=== PATIENT | male | born 1940 | race Caucasian/White ===

== ENCOUNTER 2017-04-26 05:13 | Inpatient (IN) | payer MEDICARE, OTHER ==
[2017-04-26 05:34] LABS: BEDSIDE GLUCOSE 187 MG/DL (83-110)
[2017-04-26 05:55] LABS: BASO # 0.1 10^3/uL (0.0-0.2); BASO % 0.7 % (0.0-1.0); EOS # 0.6 10^3/uL (0.0-0.50); EOS % 5.5 % (0.0-3.0); HEMATOCRIT 42.8 % (42.0-52.0); HEMOGLOBIN 14.5 g/dl (14.0-18.0); IMMATURE GRANULOCYTE % 0.7 % (0-3.0); LYMPH # 1.3 10^3/uL (1.5-4.5); MEAN CORPUSCULAR HGB CONC 33.9 g/dl (32.0-36.5); MEAN CORPUSCULAR VOLUME 97.5 fl (80.0-96.0); MONO # 1.1 10^3/uL (0.0-0.8); MONO % 10.8 % (0.0-5.0); NEUTROPHILS # 6.9 10^3/uL (1.8-7.7); NEUTROPHILS % 69.3 % (36.0-66.0); PLATELET COUNT, AUTOMATED 200 10^3/uL (150-450); RED BLOOD COUNT 4.39 10^6/uL (4.30-6.10); RED CELL DISTRIBUTION WIDTH 12.9 % (11.5-14.5)
[2017-04-26 05:59] LABS: INR 1.35; PARTIAL THROMBOPLASTIN TIME 36.1 SECONDS (26.8-37.9)
[2017-04-26] MEDS ORDERED: ASPIRIN 325 MG TAB PO (06:00)
[2017-04-26 06:09] LABS: ANION GAP 6 MEQ/L (8-16); BLOOD UREA NITROGEN 18 MG/DL (7-18); CALCIUM LEVEL 8.7 MG/DL (8.8-10.2); CARBON DIOXIDE LEVEL 26 MEQ/L (21-32); CHLORIDE LEVEL 107 MEQ/L (98-107); CPK CREATINE PHOSPHOKINASE 49 U/L (39-308); CREATININE FOR GFR 0.89 MG/DL (0.70-1.30); GLOMERULAR FILTRATION RATE > 60.0 (>42); GLUCOSE, FASTING 195 MG/DL (70-100); POTASSIUM SERUM 4.1 MEQ/L (3.5-5.1); SODIUM LEVEL 139 MEQ/L (136-145); TROPONIN I < 0.02 NG/ML (< 0.10)
[2017-04-26 06:11] LABS: CK-MB VALUE MASS 1.4 NG/ML (0.0-3.6); MB/CK RELATIVE INDEX 2.85 (< OR =4); PHENYTOIN (DILANTIN) 9.7 UG/ML (10.0-20.0)
[2017-04-26] MEDS: GI COCKTAIL 50ML BTL(HYOSCYAMINE/MAALOX/LIDOCAINE VISCOUS)(1:3:1) PO (06:13)
[2017-04-26] MEDS: METOCLOPRAMIDE INJ 10MG/2ML VIAL (J2765) IV (06:42)
[2017-04-26] MEDS ORDERED: ISOVUE-370 76% 100ML VIAL (Q9967) As Ordered (06:52)
[2017-04-26] MEDS ORDERED: KETOROLAC 30 MG/ML VIAL (J1885) As Ordered (07:24)
[2017-04-26] MEDS: KETOROLAC 30 MG/ML VIAL (J1885) IV (07:32)
[2017-04-26 07:41] LABS: APPEARANCE, URINE CLEAR (CLEAR); BACTERIA, URINE AUTO NEGATIVE (NEGATIVE); BILIRUBIN, URINE AUTO NEGATIVE (NEGATIVE); BLOOD, URINE BLOOD NEGATIVE (NEGATIVE); COLOR, URINE YELLOW (YELLOW); GLUCOSE, URINE (UA) AUTO 1+ mg/dL (NEGATIVE); KETONE, URINE AUTO NEGATIVE (NEGATIVE); LEUKOCYTE ESTERASE, URINE AUTO NEGATIVE (NEGATIVE); NITRITE, URINE AUTO NEGATIVE (NEGATIVE); PROTEIN, URINE AUTO NEGATIVE (NEGATIVE); RBC, URINE AUTO 3 /HPF (0-3); SPECIFIC GRAVITY URINE AUTO 1.024 (1.002-1.035); SQUAMOUS EPITHELIAL CELL UR AU 0 /HPF (0-6); WBC, URINE AUTO 1 /HPF (0-3)
[2017-04-26 08:41] LABS: CK-MB VALUE MASS 1.3 NG/ML (0.0-3.6); CPK CREATINE PHOSPHOKINASE 52 U/L (39-308); TROPONIN I < 0.02 NG/ML (< 0.10)
[2017-04-26] MEDS ORDERED: GLUCAGON FOR INJ 1 MG VIAL (J1610) SC (11:00)
[2017-04-26] MEDS ORDERED: GLUCOSE 4 GM CHEW TABLET PO (11:00)
[2017-04-26] MEDS: ENOXAPARIN 100MG/1ML SYRINGE (J1650) SC ×2 (11:43→23:37)
[2017-04-26] MEDS: NS 1,000 ML IV (11:43)
[2017-04-26 11:52] LABS: ALBUMIN 3.8 GM/DL (3.2-5.2); ALBUMIN/GLOBULIN RATIO 0.88 (1.00-1.93); ALKALINE PHOSPHATASE 82 U/L (45-117); ALT/SGPT 26 U/L (12-78); ANION GAP 10 MEQ/L (8-16); AST/SGOT 25 U/L (7-37); BILIRUBIN,TOTAL 0.3 MG/DL (0.2-1.0); BLOOD UREA NITROGEN 16 MG/DL (7-18); CALCIUM LEVEL 8.6 MG/DL (8.8-10.2); CARBON DIOXIDE LEVEL 25 MEQ/L (21-32); CHLORIDE LEVEL 105 MEQ/L (98-107); CREATININE FOR GFR 0.89 MG/DL (0.70-1.30); GLOMERULAR FILTRATION RATE > 60.0 (>42); GLUCOSE, FASTING 163 MG/DL (70-100); SODIUM LEVEL 140 MEQ/L (136-145); TOTAL PROTEIN 8.1 GM/DL (6.4-8.2)
[2017-04-26 12:11] LABS: BEDSIDE GLUCOSE 142 MG/DL (83-110)
[2017-04-26] MEDS: DOXYCYCLINE HYCLATE 100 MG in D5W MINI-BAG PLUS 100 ML IV ×2 (12:30→23:37)
[2017-04-26] MEDS: HumaLOG INSULIN (NovoLOG) PER UNIT SC ×3 (12:34→20:29)
[2017-04-26] MEDS: CEFTRIAXONE SOD 1 GM in APPROPRIATE DILUENT 1 EA IV (13:28)
[2017-04-26] MEDS: PHENYTOIN ER 100 MG CAP PO ×3 (14:03→20:29)
[2017-04-26 14:30] LABS: CK-MB VALUE MASS 1.6 NG/ML (0.0-3.6); CPK CREATINE PHOSPHOKINASE 62 U/L (39-308); MB/CK RELATIVE INDEX 2.58 (< OR =4); TROPONIN I < 0.02 NG/ML (< 0.10)
[2017-04-26] MEDS: ONDANSETRON 4MG/2ML VIAL (J2405) IV (17:00)
[2017-04-26] MEDS: PERCOCET 5MG/325MG TAB PO ×2 (17:01→18:45)
[2017-04-26] MEDS: ACETAMINOPHEN TAB 650MG DOSE (2X325MG) PO (17:02)
[2017-04-26 17:13] LABS: BEDSIDE GLUCOSE 145 MG/DL (83-110)
[2017-04-26 20:21] LABS: BEDSIDE GLUCOSE 195 MG/DL (83-110)
[2017-04-26 20:26] LABS: CK-MB VALUE MASS 1.3 NG/ML (0.0-3.6); CPK CREATINE PHOSPHOKINASE 61 U/L (39-308); MB/CK RELATIVE INDEX 2.13 (< OR =4); TROPONIN I < 0.02 NG/ML (< 0.10)
[2017-04-27 02:52] LABS: ALBUMIN 3.1 GM/DL (3.2-5.2); ALBUMIN/GLOBULIN RATIO 0.67 (1.00-1.93); ALKALINE PHOSPHATASE 65 U/L (45-117); ALT/SGPT 23 U/L (12-78); ANION GAP 11 MEQ/L (8-16); AST/SGOT 20 U/L (7-37); BILIRUBIN,TOTAL 0.5 MG/DL (0.2-1.0); BLOOD UREA NITROGEN 25 MG/DL (7-18); CALCIUM LEVEL 8.5 MG/DL (8.8-10.2); CARBON DIOXIDE LEVEL 23 MEQ/L (21-32); CHLORIDE LEVEL 107 MEQ/L (98-107); CPK CREATINE PHOSPHOKINASE 68 U/L (39-308); CREATININE FOR GFR 1.05 MG/DL (0.70-1.30); GLOMERULAR FILTRATION RATE > 60.0 (>42); GLUCOSE, FASTING 170 MG/DL (70-100); SODIUM LEVEL 141 MEQ/L (136-145); TOTAL PROTEIN 7.7 GM/DL (6.4-8.2); TROPONIN I 0.03 NG/ML (< 0.10)
[2017-04-27 02:53] LABS: CK-MB VALUE MASS 1.3 NG/ML (0.0-3.6); MB/CK RELATIVE INDEX 1.91 (< OR =4)
[2017-04-27 03:18] LABS: BASO % 0.1 % (0.0-1.0); HEMATOCRIT 44.1 % (42.0-52.0); HEMOGLOBIN 14.9 g/dl (14.0-18.0); IMMATURE GRANULOCYTE % 0.3 % (0-3.0); LYMPH # 0.7 10^3/uL (1.5-4.5); LYMPH % 3.4 % (24.0-44.0); MEAN CORPUSCULAR HEMOGLOBIN 32.9 pg (27.0-33.0); MEAN CORPUSCULAR HGB CONC 33.8 g/dl (32.0-36.5); MEAN CORPUSCULAR VOLUME 97.4 fl (80.0-96.0); MONO # 1.5 10^3/uL (0.0-0.8); MONO % 7.5 % (0.0-5.0); NEUTROPHILS # 17.8 10^3/uL (1.8-7.7); NEUTROPHILS % 88.7 % (36.0-66.0); PLATELET COUNT, AUTOMATED 194 10^3/uL (150-450); RED BLOOD COUNT 4.53 10^6/uL (4.30-6.10); RED CELL DISTRIBUTION WIDTH 13.2 % (11.5-14.5); WHITE BLOOD COUNT 20.1 10^3/uL (4.0-10.0)
[2017-04-27 03:22] LABS: INR 1.83; PROTHROMBIN TIME 21.7 SECONDS (12.4-14.5)
[2017-04-27 07:51] LABS: BEDSIDE GLUCOSE 161 MG/DL (83-110)
[2017-04-27] MEDS: ONDANSETRON 4MG/2ML VIAL (J2405) IV (08:14)
[2017-04-27] MEDS: ACETAMINOPHEN TAB 650MG DOSE (2X325MG) PO ×2 (08:15→18:44)
[2017-04-27] MEDS: PHENYTOIN ER 100 MG CAP PO ×4 (08:15→20:57)
[2017-04-27] MEDS: HumaLOG INSULIN (NovoLOG) PER UNIT SC ×5 (08:16→20:57)
[2017-04-27] MEDS ORDERED: ALBUTEROL SULFATE 2.5 MG/0.5 ML INH NEB SOLN NEB (10:00)
[2017-04-27] MEDS: ENOXAPARIN 100MG/1ML SYRINGE (J1650) SC ×2 (11:10→23:28)
[2017-04-27] MEDS: CEFTRIAXONE SOD 2 GM in APPROPRIATE DILUENT 1 EA IV (11:11)
[2017-04-27] MEDS: DOXYCYCLINE HYCLATE 100 MG in D5W MINI-BAG PLUS 100 ML IV ×2 (11:11→23:28)
[2017-04-27] MEDS: KCL 40MEQ in NS 1000ML 1,000 ML IV ×2 (11:11→20:57)
[2017-04-27 12:22] LABS: BEDSIDE GLUCOSE 157 MG/DL (83-110)
[2017-04-27 17:28] LABS: BEDSIDE GLUCOSE 120 MG/DL (83-110)
[2017-04-27 20:58] LABS: BEDSIDE GLUCOSE 162 MG/DL (83-110)
[2017-04-28 05:24] LABS: HEMATOCRIT 39.9 % (42.0-52.0); HEMOGLOBIN 13.5 g/dl (14.0-18.0); MEAN CORPUSCULAR HEMOGLOBIN 32.9 pg (27.0-33.0); MEAN CORPUSCULAR HGB CONC 33.8 g/dl (32.0-36.5); MEAN CORPUSCULAR VOLUME 97.3 fl (80.0-96.0); PLATELET COUNT, AUTOMATED 171 10^3/uL (150-450); RED CELL DISTRIBUTION WIDTH 13.2 % (11.5-14.5); WHITE BLOOD COUNT 18.2 10^3/uL (4.0-10.0)
[2017-04-28 05:28] LABS: ADD MANUAL DIFFER YES; DIFF SLIDE NUMBER 63; POSITIVE MORPH POS FLAG
[2017-04-28 05:31] LABS: INR 2.18; PROTHROMBIN TIME 25.1 SECONDS (12.4-14.5)
[2017-04-28 05:38] LABS: ALBUMIN 2.5 GM/DL (3.2-5.2); ALBUMIN/GLOBULIN RATIO 0.57 (1.00-1.93); ALKALINE PHOSPHATASE 52 U/L (45-117); ALT/SGPT 17 U/L (12-78); ANION GAP 8 MEQ/L (8-16); AST/SGOT 28 U/L (7-37); BILIRUBIN,TOTAL 0.8 MG/DL (0.2-1.0); BLOOD UREA NITROGEN 28 MG/DL (7-18); CALCIUM LEVEL 8.2 MG/DL (8.8-10.2); CARBON DIOXIDE LEVEL 23 MEQ/L (21-32); CHLORIDE LEVEL 111 MEQ/L (98-107); CREATININE FOR GFR 1.01 MG/DL (0.70-1.30); GLOMERULAR FILTRATION RATE > 60.0 (>42); GLUCOSE, FASTING 137 MG/DL (70-100); PHENYTOIN (DILANTIN) 9.2 UG/ML (10.0-20.0); POTASSIUM SERUM 4.2 MEQ/L (3.5-5.1); SODIUM LEVEL 142 MEQ/L (136-145); TOTAL PROTEIN 6.9 GM/DL (6.4-8.2)
[2017-04-28] MEDS: KCL 40MEQ in NS 1000ML 1,000 ML IV ×3 (05:51→20:04)
[2017-04-28 06:07] LABS: BANDS 4 % (< 11); LYMPHOCYTES 2 % (16-52); MONOCYTES 2 % (0-8); NEUTROPHILS 92 % (35-75)
[2017-04-28 06:08] LABS: PLATELET ESTIMATE NORMAL (NORMAL)
[2017-04-28] MEDS: HumaLOG INSULIN (NovoLOG) PER UNIT SC ×4 (07:30→20:07)
[2017-04-28] MEDS: PHENYTOIN ER 100 MG CAP PO ×4 (08:30→20:11)
[2017-04-28] MEDS: GASTROGRAFIN SOLUTION 30ML PO ×2 (08:30→09:05)
[2017-04-28] MEDS: ENOXAPARIN 100MG/1ML SYRINGE (J1650) SC (08:35)
[2017-04-28] MEDS ORDERED: ISOVUE-370 76% 100ML VIAL (Q9967) As Ordered (09:41)
[2017-04-28] MEDS: CEFTRIAXONE SOD 2 GM in APPROPRIATE DILUENT 1 EA IV (10:50)
[2017-04-28] MEDS: DOXYCYCLINE HYCLATE 100 MG in D5W MINI-BAG PLUS 100 ML IV ×2 (11:32→23:17)
[2017-04-28 16:38] LABS: BEDSIDE GLUCOSE 125 MG/DL (83-110)
[2017-04-28 20:14] LABS: BEDSIDE GLUCOSE 191 MG/DL (83-110)
[2017-04-29 01:19] LABS: BEDSIDE GLUCOSE 144 MG/DL (83-110)
[2017-04-29] MEDS: KCL 40MEQ in NS 1000ML 1,000 ML IV (02:55)
[2017-04-29 04:24] LABS: HEMATOCRIT 44.7 % (42.0-52.0); HEMOGLOBIN 15.1 g/dl (14.0-18.0); MEAN CORPUSCULAR HGB CONC 33.8 g/dl (32.0-36.5); MEAN CORPUSCULAR VOLUME 97.6 fl (80.0-96.0); PLATELET COUNT, AUTOMATED 175 10^3/uL (150-450); RED BLOOD COUNT 4.58 10^6/uL (4.30-6.10); RED CELL DISTRIBUTION WIDTH 13.2 % (11.5-14.5); WHITE BLOOD COUNT 15.4 10^3/uL (4.0-10.0)
[2017-04-29 04:26] LABS: ADD MANUAL DIFFER YES; DIFF SLIDE NUMBER 42; POSITIVE MORPH POS FLAG
[2017-04-29 04:47] LABS: ALBUMIN 2.6 GM/DL (3.2-5.2); ALBUMIN/GLOBULIN RATIO 0.51 (1.00-1.93); ALKALINE PHOSPHATASE 70 U/L (45-117); ALT/SGPT 552 U/L (12-78); ANION GAP 11 MEQ/L (8-16); AST/SGOT 1392 U/L (7-37); BILIRUBIN,TOTAL 0.9 MG/DL (0.2-1.0); BLOOD UREA NITROGEN 19 MG/DL (7-18); CALCIUM LEVEL 9.1 MG/DL (8.8-10.2); CARBON DIOXIDE LEVEL 22 MEQ/L (21-32); CHLORIDE LEVEL 111 MEQ/L (98-107); GLOMERULAR FILTRATION RATE > 60.0 (>42); GLUCOSE, FASTING 143 MG/DL (70-100); POTASSIUM SERUM 4.6 MEQ/L (3.5-5.1); SODIUM LEVEL 144 MEQ/L (136-145); TOTAL PROTEIN 7.7 GM/DL (6.4-8.2)
[2017-04-29 05:11] LABS: ATYPICAL LYMPH 1 % (0-5); BANDS 1 % (< 11); LYMPHOCYTES 7 % (16-52); MONOCYTES 5 % (0-8); NEUTROPHILS 86 % (35-75); PLATELET ESTIMATE NORMAL (NORMAL)
[2017-04-29 05:12] LABS: TOXIC GRANULATION 1+; TOXIC VACUOLATION 1+
[2017-04-29] MEDS: NS 1,000 ML IV (07:45)
[2017-04-29] MEDS ORDERED: MIDAZOLAM INJ 2 MG/2 ML VIAL (J2250) As Ordered ×3 (07:58→13:57)
[2017-04-29] MEDS ORDERED: NOREPINEPHRINE 4 MG/4 ML AMP As Ordered (08:27)
[2017-04-29 08:39] LABS: ABG BASE EXCESS -16.6 (-2.0-2.0); ABG HCO3 11.8 MEQ/L (22.0-26.0); ABG O2 SATURATION 99.9 % (95.0-99.0); ABG PARTIAL PRESSURE CO2 36.9 mmHg (35.0-45.0); ABG PARTIAL PRESSURE O2 355.3 mmHg (75.0-100.0); ABG STANDARD HCO3 12.2 MEQ/L (22.0-26.0); ABG TOTAL CO2 12.9 MEQ/L (23.0-31.0)
[2017-04-29 08:40] LABS: ABG pH (ARTERIAL) 7.123 UNITS (7.350-7.450)
[2017-04-29] MEDS: MIDAZOLAM INJ 2 MG/2 ML VIAL (J2250) IV (09:00)
[2017-04-29] MEDS: DEXTROSE 50% 50 ML SYRINGE IV ×4 (09:15→10:57)
[2017-04-29] MEDS ORDERED: MIDAZOLAM INJ 2 MG/2 ML VIAL (J2250) IV (09:30)
[2017-04-29] MEDS ORDERED: MORPHINE 4 MG/ML 1ML VIAL (J2270) IV (09:30)
[2017-04-29 09:31] LABS: CENTRAL VEN O2 SATURATION 87.7 %
[2017-04-29] MEDS: NOREPINEPHRINE BITARTRATE 8 MG in D5W 492 ML IV ×2 (10:00→17:43)
[2017-04-29] MEDS ORDERED: VASOPRESSIN INJ 20 UNITS/ML VIAL As Ordered (10:00)
[2017-04-29] MEDS: VASOPRESSIN INJ 20 UNITS in NS 500 ML IV ×2 (10:00→17:19)
[2017-04-29] MEDS ORDERED: metroNIDAZOLE 500 MG in APPROPRIATE DILUENT 1 EA IV (10:00)
[2017-04-29] MEDS ORDERED: CALCIUM GLUCONATE 1,000MG/10ML VIAL (100MG/ML) (J0610) As Ordered (10:06)
[2017-04-29 10:08] LABS: ALBUMIN 2.1 GM/DL (3.2-5.2); ALKALINE PHOSPHATASE 107 U/L (45-117); ANION GAP 22 MEQ/L (8-16); BILIRUBIN,TOTAL 1.2 MG/DL (0.2-1.0); BLOOD UREA NITROGEN 22 MG/DL (7-18); CALCIUM LEVEL 7.8 MG/DL (8.8-10.2); CARBON DIOXIDE LEVEL 14 MEQ/L (21-32); CHLORIDE LEVEL 116 MEQ/L (98-107); CHOLESTEROL LEVEL 69 MG/DL (< 200); CREATININE FOR GFR 1.59 MG/DL (0.70-1.30); GLOMERULAR FILTRATION RATE 45.2 (>42); PHOSPHORUS LEVEL 7.9 MG/DL (2.5-4.9); SODIUM LEVEL 152 MEQ/L (136-145); TOTAL PROTEIN 6.3 GM/DL (6.4-8.2); TRIGLYCERIDES LEVEL 207 MG/DL (<150)
[2017-04-29] MEDS: CALCIUM GLUCONATE 1,000 MG in D5W MINI-BAG PLUS 100 ML IV (10:15)
[2017-04-29 10:24] LABS: ALT/SGPT 3153 U/L (12-78)
[2017-04-29 10:24] LABS: LACTIC ACID SEPSIS PROTOCOL 16.4 MMOL/L (0.4-2.0)
[2017-04-29] MEDS ORDERED: CALCIUM GLUCONATE 1,000 MG in D5W MINI-BAG PLUS 100 ML IV (10:30)
[2017-04-29 10:55] LABS: POTASSIUM SERUM 5.3 MEQ/L (3.5-5.1)
[2017-04-29 10:57] LABS: GLUCOSE, FASTING 25 MG/DL (70-100)
[2017-04-29] MEDS: SODIUM CHLORIDE 0.9% 1000 ML IV (10:57)
[2017-04-29] MEDS: PANTOPRAZOLE 40MG INJ (PROTONIX) (C9113) IV (10:58)
[2017-04-29] MEDS: HumuLIN R (REGULAR) INSULIN (NovoLIN R) **100U/ML** PER UNIT IV (10:58)
[2017-04-29] MEDS: THIAMINE HCL 200 MG/2 ML VIAL (J3411) IM (10:59)
[2017-04-29] MEDS: PIPERACILLIN/TAZOBACTAM SOD 3.375 GM in APPROPRIATE DILUENT 1 EA IV ×3 (10:59→23:30)
[2017-04-29] MEDS: CHLORHEXIDINE ORAL RINSE 0.12%/15ML 120ML BOTTLE MT ×2 (10:59→21:54)
[2017-04-29 11:17] LABS: CPK CREATINE PHOSPHOKINASE 1108 U/L (39-308)
[2017-04-29 11:18] LABS: AST/SGOT 8838 U/L (7-37)
[2017-04-29 11:21] LABS: BEDSIDE GLUCOSE 99 MG/DL (83-110)
[2017-04-29 11:21] LABS: BEDSIDE GLUCOSE 51 MG/DL (83-110)
[2017-04-29 11:21] LABS: BEDSIDE GLUCOSE 100 MG/DL (83-110)
[2017-04-29] MEDS: PHYTONADIONE INJection 10 MG in NS 50 ML IV (11:47)
[2017-04-29] MEDS ORDERED: EPINEPHrine 1MG/10ML SYRINGE 1.5IN (11:53)
[2017-04-29] MEDS ORDERED: SODIUM BICARBONATE 8.4% INJ 50 ML SYRINGE (11:53)
[2017-04-29 12:17] LABS: LDH LACTATE DEHYDROGENASE 13248 U/L (87-241)
[2017-04-29] MEDS: D5W/0.45% SODIUM CHLORIDE 1,000 ML IV (12:20)
[2017-04-29] MEDS: metroNIDAZOLE 500 MG in APPROPRIATE DILUENT 1 EA IV ×2 (12:21→21:54)
[2017-04-29 12:41] LABS: AMYLASE 34 U/L (25-115)
[2017-04-29 12:41] LABS: LIPASE 44 U/L (73-393)
[2017-04-29 12:46] LABS: ABO/RH TYPE(VISION) 1 1
[2017-04-29] MEDS: HYDROCORTISONE 100 MG/2 ML VIAL (J1720) IV ×2 (13:00→21:54)
[2017-04-29 13:18] LABS: ABG BASE EXCESS -25.2 (-2.0-2.0); ABG HCO3 5.9 MEQ/L (22.0-26.0); ABG O2 SATURATION 98.5 % (95.0-99.0); ABG PARTIAL PRESSURE CO2 27.6 mmHg (35.0-45.0); ABG PARTIAL PRESSURE O2 165.8 mmHg (75.0-100.0); ABG TOTAL CO2 6.7 MEQ/L (23.0-31.0)
[2017-04-29 13:19] LABS: ABG pH (ARTERIAL) 6.946 UNITS (7.350-7.450)
[2017-04-29 13:38] LABS: ANION GAP 27 MEQ/L (8-16); BLOOD UREA NITROGEN 22 MG/DL (7-18); CALCIUM LEVEL 8.1 MG/DL (8.8-10.2); CARBON DIOXIDE LEVEL 8 MEQ/L (21-32); CHLORIDE LEVEL 113 MEQ/L (98-107); CREATININE FOR GFR 2.07 MG/DL (0.70-1.30); GLOMERULAR FILTRATION RATE 33.3 (>42); GLUCOSE, FASTING 200 MG/DL (70-100); PROTHROMBIN TIME 98.6 SECONDS (12.4-14.5); SODIUM LEVEL 148 MEQ/L (136-145)
[2017-04-29 13:50] LABS: POTASSIUM SERUM 5.6 MEQ/L (3.5-5.1)
[2017-04-29 13:56] LABS: LACTIC ACID SEPSIS PROTOCOL 19.4 MMOL/L (0.4-2.0)
[2017-04-29] MEDS ORDERED: fentaNYL 250 MCG/5 ML INJECTION (J3010) As Ordered (13:57)
[2017-04-29] MEDS ORDERED: ROCURONIUM BROMIDE 50 MG/5 ML VIAL As Ordered (13:57)
[2017-04-29 14:28] LABS: INR 11.75
[2017-04-29 15:07] LABS: INR 2.96; PROTHROMBIN TIME 32.2 SECONDS (12.4-14.5)
[2017-04-29 15:15] LABS: PROTHROMBIN TIME 59.6 SECONDS (12.4-14.5)
[2017-04-29 15:39] LABS: INR 6.33
[2017-04-29 18:02] LABS: BEDSIDE GLUCOSE 244 MG/DL (83-110)
[2017-04-29] MEDS: IPRATROPIUM 0.5MG/ALBUTEROL 2.5MG INH SOL UD 3ML (DUONEB)(J7620) NEB (20:00)
[2017-04-30] MEDS ORDERED: PANTOPRAZOLE 40MG INJ (PROTONIX) (C9113) IV (09:00)
[2017-04-30 10:51] LABS: HEPATITIS B SURFACE ANTIGEN NEGATIVE (NEGATIVE)
[2017-04-30 10:56] LABS: HEPATITIS B CORE ANTIBODY IGM NEGATIVE (NEGATIVE)
[2017-04-30 10:57] LABS: HEPATITIS A ANTIBODY IGM NEGATIVE (NEGATIVE)
[2017-04-30 13:09] LABS: HEPATITIS C VIRUS ABY INDEX 0.1 INDEX (<0.8)
== END 2017-04-30 00:56 | disposition expired | DRG 356 ==
LOC: M ICU 04-29 07:56 → M ED 05:13 → M ED INP 10:07 → M PCU 14:37
PROC: 0DJD0ZZ Inspection of Lower Intestinal Tract, Open Approach (ICD-10-PCS; principal; 2017-04-29 11:14)
PROC: 5A1935Z Respiratory Ventilation, Less than 24 Consecutive Hours (ICD-10-PCS; 2017-04-29 12:39)
PROC: 03HY32Z Insertion of Monitoring Device into Upper Artery, Percutaneous Approach (ICD-10-PCS; 2017-04-29 12:39)
PROC: 02HV33Z Insertion of Infusion Device into Superior Vena Cava, Percutaneous Approach (ICD-10-PCS; 2017-04-29 12:39)
PROC: 30233K1 Transfusion of Nonautologous Frozen Plasma into Peripheral Vein, Percutaneous Approach (ICD-10-PCS; 2017-04-29 12:39)
DX: K55.059 Acute (reversible) ischemia of intestine, part and extent unspecified (principal); K72.01 Acute and subacute hepatic failure with coma; G93.41 Metabolic encephalopathy; J96.00 Acute respiratory failure, unspecified whether with hypoxia or hypercapnia; J18.9 Pneumonia, unspecified organism; R65.21 Severe sepsis with septic shock; C78.7 Secondary malignant neoplasm of liver and intrahepatic bile duct; I82.401 Acute embolism and thrombosis of unspecified deep veins of right lower extremity; E87.2 Acidosis; S22.080A Wedge compression fracture of T11-T12 vertebra, initial encounter for closed fracture; C34.90 Malignant neoplasm of unspecified part of unspecified bronchus or lung; R40.2434 Glasgow coma scale score 3-8, 24 hours or more after hospital admission; I46.9 Cardiac arrest, cause unspecified; E11.9 Type 2 diabetes mellitus without complications; I10 Essential (primary) hypertension; G20 Parkinson's disease; G40.909 Epilepsy, unspecified, not intractable, without status epilepticus; Z96.653 Presence of artificial knee joint, bilateral; Z87.891 Personal history of nicotine dependence; Z79.84 Long term (current) use of oral hypoglycemic drugs; Z79.52 Long term (current) use of systemic steroids; Z79.899 Other long term (current) drug therapy; Z88.6 Allergy status to analgesic agent; X58.XXXA Exposure to other specified factors, initial encounter; Y93.9 Activity, unspecified